=== PATIENT | female | born 1975 | race Two or more races ===

== ENCOUNTER 2023-11-22 18:43 | Emergency (ER) | payer OTHER, MEDICAID ==
[~2023-11-22] VITALS: Ht 165.1 cm; Wt 95.3 kg
[2023-11-22] MEDS ORDERED: LEVO25TA2 PO (19:07)
[2023-11-22] MEDS ORDERED: METOCLOPRAMIDE HCL 10 MG/2 ML VIAL ONE (19:38)
[2023-11-22] MEDS ORDERED: ACETAMINOPHEN 500 MG TABLET ONE (19:38)
[2023-11-22] MEDS: IV NORMAL SALINE 500 ML BAG IV ONE (19:50)
[2023-11-22 19:51] LABS: BASOPHILS % (AUTO) 0.5 % (0.0-2.0); EOSINOPHILS # (AUTO) 0.1 K/uL (0.0-0.7); EOSINOPHILS % (AUTO) 0.6 % (0.0-7.0); HEMATOCRIT 37.6 % (31.2-41.9); HEMOGLOBIN 12.4 g/dL (10.9-14.3); LYMPHOCYTES # (AUTO) 0.8 K/uL (0.8-4.8); LYMPHOCYTES % (AUTO) 8.5 % (20.5-51.5); MEAN CORPUSCULAR HEMOGLOBIN 26.3 uug (24.7-32.8); MEAN CORPUSCULAR HGB CONC 33 g/dL (32.3-35.6); MEAN CORPUSCULAR VOLUME 79.7 fL (75.5-95.3); MONOCYTES # (AUTO) 0.6 K/uL (0.1-1.30); MONOCYTES % (AUTO) 6.3 % (0.0-11.0); NEUTROPHILS # (AUTO) 7.8 K/uL (1.8-8.9); NEUTROPHILS % (AUTO) 84.1 % (38.5-71.5); PLATELET COUNT (AUTO) 313 K/uL (179-408); RED BLOOD CELL COUNT(AUTO) 4.72 MIL/uL (3.63-4.92); RED CELL DISTRIBUTION WIDTH 25.5 % (12.3-17.7); WHITE BLOOD COUNT (AUTO) 9.3 K/uL (3.8-11.8)
[2023-11-22] MEDS: METOCLOPRAMIDE HCL 10 MG/2 ML VIAL IV ONE (19:51)
[2023-11-22] MEDS: ACETAMINOPHEN 500 MG TABLET PO ONE (19:51)
[2023-11-22 19:52] LABS: DIFFERENTIAL COMMENT 1
[2023-11-22 19:58] LABS: *URINE HCG, QUAL NEGATIVE (NEGATIVE)
[2023-11-22 19:59] LABS: CALCIUM 9.2 mg/dL (8.5-10.1); CREATININE 0.7 mg/dL (0.6-1.3); POTASSIUM 3.9 mmol/L (3.5-5.1)
[2023-11-22 20:05] LABS: ALBUMIN 3.8 g/dL (3.4-5.0); BILIRUBIN,DIRECT 0.2 mg/dL (0.0-0.2); BILIRUBIN,TOTAL 0.8 mg/dL (0.2-1.0); TOTAL PROTEIN, SERUM 7.9 g/dL (6.4-8.2)
[2023-11-22 20:55] LABS: *BILIRUBIN,URIN NEGATIVE (NEGATIVE); *BLOOD, URINE 3+ (NEGATIVE); *CLARITY,URINE SLIGHTLY CLOUDY (CLEAR); *COLOR,URINE Other (YELLOW); *KETONES,URINE NEGATIVE (NEGATIVE); *PROTEIN,URINE NEGATIVE (NEGATIVE); *UROBILINOGEN,URINE 0.2 E.U./dl (NORMAL); LEUKOCYTE ESTERASE ,URINE TRACE (NEGATIVE); NITRITE, URINE NEGATIVE (NEGATIVE); UGLUCOSE NEGATIVE (NEGATIVE)
[2023-11-22 20:56] LABS: WBC,URINE 0-3 /HPF (0-3)
[2023-11-22] MEDS ORDERED: ONDA4TAB11 PO (22:25)
[2023-11-22] MEDS ORDERED: CEFD300C3 PO (22:25)
[2023-11-22] MEDS ORDERED: CEFTRIAXONE /D5W 50ML IVPB **ER PYXIS IV ONE (22:28)
[2023-11-22] MEDS: CEFTRIAXONE 1 G in IV DEXTROSE 5% 50 ML IV ONE (22:33)
[2023-11-22 23:11] VITALS: BP 116/82; O2SAT 95
== END 2023-11-22 23:03 | disposition home or self-care (01) ==
LOC: ER 18:44
DX: R50.9 Fever, unspecified (principal); N39.0 Urinary tract infection, site not specified; R10.9 Unspecified abdominal pain; R10.2 Pelvic and perineal pain; E03.9 Hypothyroidism, unspecified; Z98.890 Other specified postprocedural states; Z79.899 Other long term (current) drug therapy
CPT/HCPCS: 99285; 74176; 96365; 96361; 96375; 80076; 80048; 81001; 84703; 83690; 85025; 85610; 86140; 36415; 83605; J0696; J2765; J7040; A4606; A4663; A9150

== ENCOUNTER 2024-04-18 14:58 | Emergency (ER) | payer MEDICAID ==
[~2024-04-18] VITALS: Ht 165.1 cm; Wt 77.1 kg
[~2024-04-18 14:58] MED LIST: CEFD300C3 PO; LEVO25TA2 PO; ONDA4TAB11 PO
[2024-04-18] MEDS ORDERED: KETOROLAC TROMETHAMINE 30 MG INJ ONE (15:31)
[2024-04-18] MEDS ORDERED: IBUP-1955 PO (15:33)
[2024-04-18] MEDS: KETOROLAC TROMETHAMINE 30 MG INJ IM ONE (15:43)
[2024-04-18 16:28] VITALS: BP 122/71; TEMP 97.8; O2SAT 98
== END 2024-04-18 16:29 | disposition home or self-care (01) ==
LOC: ER 14:58
DX: M25.511 Pain in right shoulder (principal); E03.9 Hypothyroidism, unspecified; Z79.1 Long term (current) use of non-steroidal anti-inflammatories (NSAID); Z79.890 Hormone replacement therapy
CPT/HCPCS: 99283; 96372; J1885; A4606; A4663